=== PATIENT | female | born 1935 ===

== ENCOUNTER 2018-04-06 14:19 | Emergency (ER) | payer SELFPAY ==
[2018-04-06 14:19] VITALS: BMI 23.3
[2018-04-06] MEDS ORDERED: DiphenhydrAMINE 50 mg/ml Inj IVP STA (15:21)
[2018-04-06 15:37] LABS: BASO # 0.1 K/uL (0.0-0.2); BASO % 0.6 % (0.0-2.0); EOS # 0.2 K/uL (0.0-0.7); EOS % 2.5 % (0.0-4.0); HEMOGLOBIN 15.1 g/dL (11.0-16.0); LYMPH % 12.4 % (20.0-40.0); MEAN CELL VOLUME 97.5 fL (81.0-99.0); MEAN CORPUSCULAR HEMOGLOBIN 33.6 pg (27.0-31.0); MEAN CORPUSCULAR HGB CONC 34.4 g/dL (33.0-37.0); MEAN PLATELET VOLUME 7.6 fL (7.2-11.7); MONO # 0.6 K/uL (0.0-0.8); MONO % 7.2 % (0.0-10.0); NEUT # 6.5 K/uL (1.8-7.0); NEUT % 77.3 % (50.0-75.0); RBC 4.49 Mil/uL (3.80-5.20); WHITE BLOOD COUNT 8.4 K/uL (4.8-10.8)
--- NOTE | 2018-04-06 15:47 | C.PDOC ---
History Of Present Illness 82 y/o female presents to ED c/o pain, redness and peeling to bilateral lower extremities. Pain is described as pinching and burning sensation. She notes undergoing varicose surgery of her lower extremity few years ago. Also reports itchy rash to chest, neck and arms for the past week. Notes taking Benadryl without improvement. Denies fever, or other complaints. Time Seen by Provider: 04/06/18 15:11 Chief Complaint (Nursing): Abnormal Skin Integrity History Per: Patient History/Exam Limitations: no limitations Past Medical History Reviewed: Historical Data, Nursing Documentation, Vital Signs Vital Signs: Last Vital Signs Temp 98.6 F 04/06/18 14:36 Pulse 83 04/06/18 14:36 Resp 16 04/06/18 14:36 BP 117/78 04/06/18 14:36 Pulse Ox 98 04/06/18 16:06 - Medical History PMH: Arthritis, HTN, Peripheral Edema Denies: Depression - [facility] CONTR CEREBR ARTERIOGRAM (10/26/04) MAGNETIC RESONANCE IMAGING OF BRAIN AND BRAIN STEM (10/26/04) Family History: States: Unknown Family Hx - Social History Hx Alcohol Use: No Hx Substance Use: No - Immunization History Hx Influenza Vaccination: Yes Hx Pneumococcal Vaccination: Yes Review Of Systems Except As Marked, All Systems Reviewed And Found Negative. Constitutional: Negative for: Fever, Chills Cardiovascular: Negative for: Chest Pain, Palpitations Respiratory: Negative for: Cough, Shortness of Breath Skin: Positive for: Rash Neurological: Negative for: Weakness, Numbness Physical Exam - Physical Exam Appears: Non-toxic, No Acute Distress Skin: Warm, Dry, Rash (erythematous maculopapular rash to chest, neck, and arms ; no cellulitis, or swelling) Head: Atraumatic, Normacephalic Eye(s): bilateral: Normal Inspection Oral Mucosa: Moist Cardiovascular: Rhythm Regular Respiratory: Normal Breath Sounds, No Rales, No Rhonchi, No Wheezing Gastrointestinal/Abdominal: Soft, No Tenderness Extremity: Normal ROM, No Calf Tenderness, Capillary Refill (less than 2 seconds ), No Deformity, Other (sloughing of epidermal skin of bilateral lower legs secondary to thin skin; no gross signs of cellulitic process) Pulses: Left Dorsalis Pedis: Normal, Right Dorsalis Pedis: Normal Neurological/Psych: Oriented x3, Normal Speech ED Course And Treatment - Laboratory Results Result Diagrams: 04/06/18 15:34 04/06/18 15:34 O2 Sat by Pulse Oximetry: 98 Pulse Ox Interpretation: Normal Medical Decision Making Medical Decision Making: Blood work, bilateral foot x-ray, EKG ordered and reviewed. Pt was given Benadryl, Solu-Medrol, Tramadol, Pepcid, Percocet. 15:50 Podiatry at bedside 1655 - patient okay to be discharged by podiatry with follow up in [address] Keane Will treat chest rash as allergic component and pain medication for lower extremity rash. Disposition Counseled Patient/Family Regarding: Studies Performed, Diagnosis, Need For Followup, Rx Given - Disposition Referrals: Belle Keane DPM [Staff Provider] - Disposition: HOME/ ROUTINE Disposition Time: 16:56 Condition: STABLE Additional Instructions: follow up with Dr. Keane this Monday in clinic call to make an appointment take medications as prescribed return to ER if symptoms worsens or progress Prescriptions: Acetaminophen/Codeine [Tylenol/Codeine 300 MG/30 MG] 1 tab PO Q6H PRN #12 tab PRN Reason: Pain, Severe (8-10) Hydrocortisone 1% Cream [Cortizone 1% Cream] 1 appl TP BID #45 tube Loratadine [Claritin] 10 mg PO DAILY PRN #15 tab PRN Reason: Other predniSONE [predniSONE Tab] 50 mg PO DAILY #4 tab Instructions: Skin Rash (DC) Forms: [facility] (Niuean), General Discharge Instructions - Clinical Impression Clinical Impression: Allergic contact dermatitis, Venous stasis, Venous stasis dermatitis - Scribe Statement The provider has reviewed the documentation as recorded by the Scribe KP All medical record entries made by the Scribe were at my direction and personally dictated by me. I have reviewed the chart and agree that the record accurately reflects my personal performance of the history, physical exam, medical decision making, and the department course for this patient. I have also personally directed, reviewed, and agree with the discharge instructions and disposition.
[2018-04-06] MEDS ORDERED: Oxycodone/Acetaminophen 5/325 mg Tab PO STA (15:51)
--- NOTE | 2018-04-06 16:06 | RAD ---
Date of service: 04/06/2018 PROCEDURE: Bilateral Feet Radiographs. HISTORY: rash COMPARISON: None. FINDINGS: BONES: Right Foot: No evidence of fracture. Left Foot: No evidence of fracture. JOINTS: Right Foot: Hallux valgus. Hammertoe deformity 2nd through 5th digit. 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 Left Foot: Hallux valgus. Severe hammertoe deformity 2nd digit. No arthritis appreciated. SOFT TISSUES: Right Foot: Normal. Left Foot: Normal. OTHER FINDINGS: None. IMPRESSION: No plain radiographic evidence of osteomyelitis. Hammertoe deformities as described. Bilateral hallux valgus deformity. 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
[2018-04-06] MEDS ORDERED: MethylPREDNISolone 40 mg Vial ONE (16:13)
[2018-04-06] MEDS ORDERED: Oxycodone/Acetaminophen 5/325 mg Tab ONE (16:14)
[2018-04-06 16:23] LABS: BLOOD UREA NITROGEN 20 mg/dL (7-17); GFR AFRICAN-AMERICAN > 60; GFR NON-AFRICAN AMERICAN 53
[2018-04-06 16:24] LABS: ALBUMIN 2.9 g/dL (3.5-5.0); ALT/SGPT 25 U/L (9-52); AST/SGOT 28 U/L (14-36); CALCIUM 9.5 mg/dl (8.6-10.4)
[2018-04-06 17:09] VITALS: BP 140/80; PULSE 72; RESP 20; TEMP 98.4; O2SAT 97
== END 2018-04-06 17:17 | disposition home or self-care (01) ==
LOC: C.ER 14:19
DX: L23.9 Allergic contact dermatitis, unspecified cause (principal); I87.8 Other specified disorders of veins; I10 Essential (primary) hypertension; R60.0 Localized edema
CPT/HCPCS: 73630; 80053; 85025; 85651; 96374; 96375; 99284; J1200; J2930